=== PATIENT | female | born 1995 ===

== ENCOUNTER 2021-07-07 12:58 | Emergency (ER) | payer OTHER ==
[2021-07-07] MEDS ORDERED: Ondansetron PF 4 MG/2 ML Vial ONE (13:10)
[2021-07-07 13:32] LABS: #Basophils 0.1 thou/uL (0.0-0.2); #Lymphocytes 2.6 thou/uL (1.20-3.40); #Monocytes 0.7 thou/uL (0.11-0.59); #Neutrophils 8.4 thou/uL (1.40-6.50); %Basophils 0.6 % (0.0-1.0); %Eosinophils 0.2 % (0.0-10.0); %Lymphocytes 21.9 % (21.0-51.0); %Monocytes 5.8 % (0.0-10.0); %Neutrophils 71.4 % (42.0-75.0); Hemoglobin 15.4 g/dL (12.0-16.0); Mean Corpuscular Hemoglobin 30.6 pg (27.0-31.0); Mean Corpuscular Volume 85.1 fL (78.0-98.0); Mean Platelet Volume 7.6 fL (7.4-10.4); Platelet Count 381 thou/uL (130-400); RBC Distribution Width 11.7 % (11.5-14.5); Red Blood Cell (RBC) Count 5.03 mill/uL (4.20-5.40); White Blood Cell (WBC) Count 11.7 thou/uL (4.8-10.8)
[2021-07-07] MEDS ORDERED: Promethazine HCl 25 MG/ML VIAL ONE (13:38)
[2021-07-07 13:52] LABS: ALT (SGPT) 11 U/L (8-55); AST (SGOT) 17 U/L (5-34); Albumin 4.1 g/dL (3.5-5.0); Alkaline Phosphatase 49 U/L (40-110); Anion Gap 15 mmol/L (10-20); BUN (Urea Nitrogen) 10 mg/dL (7.0-18.7); Bilirubin, Total 0.8 mg/dL (0.2-1.2); Calc. Creatinine Clearance 0 mL/min (70-130); Calcium 9.7 mg/dL (7.8-10.44); Carbon Dioxide 21 mmol/L (22-29); Chloride 99 mmol/L (98-107); Globulin 4.2 g/dL (2.4-3.5); Glucose 78 mg/dL (70-105); Potassium 3.3 mmol/L (3.5-5.1); Protein, Total 8.3 g/dL (6.0-8.3); Sodium 132 mmol/L (136-145)
== END 2021-07-07 15:42 | disposition home or self-care (01) ==
LOC: ERS 12:58
DX: O21.0 Mild hyperemesis gravidarum (principal)
CPT/HCPCS: 36415; 80053; 84702; 85025; 86900; 86901; 96365; 96366; 96375; J2405; J2550